=== PATIENT | female | born 1930 | race Caucasian/White ===

== ENCOUNTER 2016-05-30 13:58 | Emergency (ER) | payer MEDICARE, OTHER ==
[~2016-05-30] VITALS: Ht 149.9 cm; Wt 68.2 kg
[~2016-05-30 13:58] MED LIST: AMLO-39 PO; ASPI-628 PO; ATOR20TA65 PO; CARV25TA2 PO; DILT180C83 PO; LISI-567 PO; MAGN400T39 PO; RANI150T11 PO; VIT1CAPS46 PO
[2016-05-30 14:01] VITALS: BP 200/90; PULSE 98; RESP 14; O2SAT 98
--- NOTE | 2016-05-30 14:31 | ED.REPORT ---
HPI-Chest Pain 40 and Over Date of Service May 30, 2016 ED Provider: Isaías Dove MD Patient is an 86 year old female who presents to the ED complaining of dizziness on and off for the last few days. Associated symptoms include lightheadedness, altered memory, and SOB. She denies headache, blurred vision, chest pain, vomiting, or any other symptoms. She reports severe dyspnea upon arrival today. She took her regular morning BP medication today. Nursing Notes Stated Complaint: CHEST PAIN Chief Complaint: Chest Pain Nursing Notes Reviewed: Yes Allergies: Coded Allergies: Penicillins (Verified Allergy, Severe, 11/27/15) Sulfa (Sulfonamide Antibiotics) (Verified Allergy, Unknown, 03/07/14) verapamil (Verified Allergy, Unknown, 03/07/14) Scheduled Amlodipine (Norvasc) 5 Mg Tablet 5 MG PO AM Aspirin (Aspir 81) 81 Mg Tablet.dr 81 MG PO DAILY Atorvastatin Calcium (Atorvastatin Calcium) 20 Mg Tablet 20 MG PO HS Carvedilol (Carvedilol) 25 Mg Tablet 25 MG PO BID Diltiazem ER (Diltiazem ER) 180 Mg Cap.er.24h 180 MG PO DAILY Lisinopril (Lisinopril) 20 Mg Tablet 20 MG PO BID Vit C/E/Zn/Coppr/Lutein/Zeaxan (Preservision Areds 2 Softgel) 1 Each Capsule 1 EACH PO DAILY Scheduled PRN Ranitidine HCl (Ranitidine) 150 Mg Tablet 150 MG PO DAILY PRN PRN Acid Reflux Miscellaneous Medications Magnesium Oxide (Magnesium) 400 Mg Tablet 400 MG PO General Time Seen by MD: 14:29 Chief Complaint Other (Dizziness ) Hx Obtained From: Patient, Other family... Arrived By: Walk-in Sudden in Onset?: Yes Onset Occurred: 3 days ago Symptom Duration: Since onset Risk Factors )( CAD Risk Stratification Hyperlipidemia Hypertension Known CADNo Diabetes mellitus Risk factors N/A )( TAD Risk Stratification HypertensionNo High intensity wt lifting, No Pre-exist aortic aneurysm, No Risk factors reviewed )( PE Risk Stratification No , No Previous DVT, No Surgery Last 60 Days Risk factors reviewed Well's Criteria for PE Well's PE Score: 0-2 pts (low risk 3.6%) Past Medical History Past Medical History Notes: Cardio Dr. Smyth Past Medical History CAD - hx of [place] X 2 - hx of PCI with stent HTN HL Asthma GERD Reports: Asthma, Coronary artery disease, GERD, Hyperlipidemia, Hypertension, Denies: Cancer, Congestive heart failure, Diabetes mellitus Past Surgical History MAGGY-BSO Appendectomy Tonsillectomy Parathyroidectomy Reports: Angioplasty, Appendectomy, Hysterectomy, Tonsillectomy Smoking History Former Smoker Social History Other Social History: Review of Systems +foggy memory Respiratory: Reports: Shortness of breath Cardiovascular: Denies: Chest pain GI: Denies: Vomiting Neurologic: Reports: Dizziness, Lightheaded, Denies: Headache Complete sys rev & neg: except as marked. Eyes: Denies: Blurred bilateral Physical Exam Initial Vital Signs Vital Signs (First) Date Time Temp Pulse Resp B/P Pulse Ox O2 Delivery O2 Flow Rate FiO2 05/30/16 14:01 36.2 98 14 200/90 98 Room Air Initial VS: Reviewed Head / Eyes: Atraumatic, Normocephalic Neck: Full range of motion Skin: Warm, Dry Neurologic: Alert Psychiatric: Mood/affect normal, Behavior normal, Normal thought content General/Constitutional: Awake, Alert, Well appearing, Well developed Respiratory / Chest: Breath sounds NL, Breath sounds = bilat, No respiratory distress Cardiovascular: Heart rate NL, Regular rhythm, Heart sounds NL, Peripheral circulation NL Abdomen: Atraumatic, Soft, Non-tender Interpretation & Diagnostics Lab Results Interpretation Result Diagram: 05/30/16 1415 05/30/16 1415 Test 05/30/16 14:15 White Blood Count 7.6th/mm3 (3.8-10.1) Red Blood Count 4.75mil/mm3 (3.90-5.20) Hemoglobin 14.4g/dL (12.0-15.6) Hematocrit 43.4% (35.0-46.0) Mean Corpuscular Volume 91.4fL (81-100) Mean Corpuscular Hemoglobin 30.3pg (27.0-35.0) Mean Corpuscular Hemoglobin Concent 33.2% (32.0-37.0) Red Cell Distribution Width 14.4% (12.3-15.4) Platelet Count 201bil/L (150-400) Neutrophils (%) (Auto) 68.6% (40-74) Lymphocytes (%) (Auto) 21.6% (14-46) Monocytes (%) (Auto) 8.3% (4-12) Eosinophils (%) (Auto) 1.1% (0-5) Basophils (%) (Auto) 0.1% (0-3) D-Dimer < 0.5mg/L (<0.50) Hold Urine Received (Received) Sodium Level 136mEq/L (134-144) Potassium Level 3.8mEq/L (3.5-5.2) Chloride Level 98mEq/L (97-108) Carbon Dioxide Level 24mmol/L (18-29) Blood Urea Nitrogen 20mg/dL (8-27) Creatinine 1.07mg/dL (0.57-1.00) Estimat Glomerular Filtration Rate 69mL/min (>59) Glucose Level 104mg/dL (60-99) Calcium Level 9.7mg/dL (8.5-10.1) Total Bilirubin 0.6mg/dL (0.0-1.2) Aspartate Amino Transf (AST/SGOT) 16U/L (0-50) Alanine Aminotransferase (ALT/SGPT) 12U/L (0-32) Alkaline Phosphatase 99U/L (25-165) Troponin T < 0.010ug/L (0.0-0.011) Total Protein 7.7g/dL (6.4-8.4) Albumin 4.5g/dL (3.4-5.0) ECG Interpretation ECG Interpretation: sinus rate 66 Time: 14:14 Interpreted by: ED physician X-Ray Chest Interpretation Chest Xray Interpretation: IMPRESSION: No acute pulmonary process. Dictated by: Radha Minor M.D. on 05/30/2016 at 15:29 Approved by: Radha Minor M.D. on 05/30/2016 at 15:29 View: Portable, 1 view Interpretation / Wet Read by: Interpret - Radiologist Re-Eval/Medical Decision Time of Eval: 16:30 Re-Evaluation/Progress Note: rechecked patient. She reports it's still heavy to breathe but not ligthheaded. Discussed plan for raod test. Patient understands and agrees with plan. All questions addressed at this time. Time of Eval: 17:03 Re-Evaluation/Progress Note: Rechecked patient. Discussed need for furthing teting to exclude PE. Patient understands and agrees with plan. All questions addressed at this time. Time of Eval: 17:51 Re-Evaluation/Progress Note: Discussed plan for discharge. Patient understands and agrees with plan. All questions addressed at this time. Counseled Regarding: Diagnosis, Lab results, Need for follow-up, When/why to return to ED Discharge & Departure Primary Impression: Malignant hypertension Additional Impression: Dyspnea Dyspnea type: unspecified Qualified Code: R06.00 - Dyspnea, unspecified Disposition: Home Discharge Condition All VS Reviewed: Yes Condition: Improved Patient Instructions: Chronic Hypertension (ED) Additional Instructions: I believe that your breathlessness was directly related to your severe hypertension which has now been controlled. It is not clear why your blood pressure was so high but among the possibilities is that you forgot to take your medication. If you develop breathlessness again and your blood pressure is greater than 190 systolic, I recommend 1 additional carvedilol tablet. If your breathlessness and severe hypertension do not resolve within 30 minutes, I recommend that you return to the emergency department for further evaluation. Follow-up with your doctor in a few days to discuss the need for potential further evaluation and treatment. Referrals: Rima Hagan (PCP) Crit Care Except Billable Proc Time Spent: 30-74 minutes Scribe Attestation Portions of this note were transcribed by Baron Hanson. I, Dr. Dove personally performed the history, physical exam and medical decision-making; I reviewed and confirmed the accuracy of the information in the transcribed note. Signed by: Baron Hanson 05/30/16, 1801 copies to: Rima Hagan Kirk H MD May 30, 2016 14:30 BARON HANSON May 30, 2016 14:40
[2016-05-30 14:41] VITALS: BP 166/76; PULSE 63; RESP 16; O2SAT 98
[2016-05-30 14:46] LABS: BASOPHILS % (AUTO) 0.1 % (0-3); EOSINOPHILS % (AUTO) 1.1 % (0-5); MONOCYTES % (AUTO) 8.3 % (4-12); Mean Corpuscular Hemoglobin 30.3 pg (27.0-35.0); Mean Corpuscular Volume 91.4 fL (81-100); NEUTROPHILS % (AUTO) 68.6 % (40-74); Platelet Count 201 bil/L (150-400)
[2016-05-30 15:25] LABS: TROPONIN T < 0.010 ug/L (0.0-0.011)
--- NOTE | 2016-05-30 15:35 | DRSVH ---
PROCEDURE: X-RAY CHEST ONE VIEW, PORTABLE ([id number]) INDICATIONS: Shortness of breath TECHNIQUE: One view of the chest was acquired. COMPARISON: [facility], CR, XR CHEST 1VW (PORTABLE), 11/27/2015, 13:23. FINDINGS: Surgical changes and devices: None. Lungs and pleura: No pleural effusions or pneumothorax. Lungs are clear. Mediastinum: Mediastinal contours appear normal. Heart size is normal. Bones and chest wall: No suspicious bony lesions. Overlying soft tissues appear unremarkable. IMPRESSION: No acute pulmonary process. Dictated by: Radha Minor M.D. on 05/30/2016 at 15:29 Approved by: Radha Minor M.D. on 05/30/2016 at 15:29
[2016-05-30 16:47] VITALS: BP 166/73; PULSE 64; RESP 21; O2SAT 99
[2016-05-30 18:19] VITALS: BP 171/61; PULSE 59; RESP 20; O2SAT 98
== END 2016-05-30 18:20 | disposition home or self-care (01) ==
LOC: SED 13:58
DX: I10 Essential (primary) hypertension (principal); R06.00 Dyspnea, unspecified; R42 Dizziness and giddiness; I25.10 Atherosclerotic heart disease of native coronary artery without angina pectoris; E78.5 Hyperlipidemia, unspecified; J45.909 Unspecified asthma, uncomplicated; K21.9 Gastro-esophageal reflux disease without esophagitis; I25.2 Old myocardial infarction; Z95.818 Presence of other cardiac implants and grafts; Z87.891 Personal history of nicotine dependence; Z79.82 Long term (current) use of aspirin; Z88.0 Allergy status to penicillin; Z88.8 Allergy status to other drugs, medicaments and biological substances

== ENCOUNTER 2016-08-30 16:33 | Emergency (ER) | payer MEDICARE, OTHER ==
--- NOTE | 2016-08-30 16:33 | ED.REPORT ---
HPI-Stroke / CVA Aug 30, 2016 ED Provider: Blake Edwards MD Patient is an 86 year old female with a hx of afib, CAD, and HTN who presents to the ED via EMS for stroke-like symptoms with a last known well of 1600. Associated symptoms include L sided weakness, L sided facial asymmetry, and slurred speech. Per , she is only on aspirin. He was in the other room when he heard her fall to the ground. He arrived to her side with her on the ground and presenting with her current symptoms. Nursing Notes Stated Complaint: STROKE Nursing Notes Reviewed: Yes Allergies: Coded Allergies: Penicillins (Verified Allergy, Severe, 08/30/16) Sulfa (Sulfonamide Antibiotics) (Verified Allergy, Unknown, 08/30/16) verapamil (Verified Allergy, Unknown, 08/30/16) Scheduled Amlodipine (Norvasc) 5 Mg Tablet 5 MG PO AM (Reported) Aspirin (Aspir 81) 81 Mg Tablet.dr 81 MG PO DAILY (Reported) Atorvastatin Calcium (Atorvastatin Calcium) 20 Mg Tablet 20 MG PO HS (Reported) Carvedilol (Carvedilol) 25 Mg Tablet 25 MG PO BID (Reported) Diltiazem ER (Diltiazem ER) 180 Mg Cap.er.24h 180 MG PO DAILY Lisinopril (Lisinopril) 20 Mg Tablet 20 MG PO BID (Reported) Vit C/E/Zn/Coppr/Lutein/Zeaxan (Preservision Areds 2 Softgel) 1 Each Capsule 1 EACH PO DAILY (Reported) Scheduled PRN Ranitidine HCl (Ranitidine) 150 Mg Tablet 150 MG PO DAILY PRN PRN Acid Reflux ( Reported) Miscellaneous Medications Magnesium Oxide (Magnesium) 400 Mg Tablet 400 MG PO (Reported) General Time Seen by Provider: 16:28 Chief Complaint Slurred speech Left-sided Hx Obtained From: Patient, Spouse Arrived By: Ambulance Time last known well 1600 Sudden in Onset?: Yes Progression Since Onset: Unchanged Similar Sx Previous: No Risk Factors )( TPA Administration/Criteria Stroke Thrombolytic Therapy : TPA Considered: Yes Neurologist Contacted: Yes Disc Risk/Benefit/Alternatives: Yes Consent Obtained: Patient, Spouse Intensive Monitoring Performed: Yes TPA Administered Intravenously: Yes Complications Encountered: No Inclusion Criteria: Measurable neuro deficit, Onset < 3hr before Tx, 18 years or older NIH Stroke Scale Level of Consciousness: Alert and responsive (0) Ask Month & Age: Both questions right (0) Open/Close Eyes/Hand 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: Performs both tasks (0) Horizontal EO Movements: None (0) Visual Degroot: Partial hemianopsia (1) (Decreased visual field on L ) Facial Palsy: Partial paral, lower (2) (Left ) Right Arm Motor Drift (10s): No drift 10 sec (0) Left Arm Motor Drift (10s): Drift, hits bed (2) Right Leg Motor Drift (5s): No drift 5 sec (0) Left Leg Motor Drift (5s): Drift, hits bed (2) (After 3 seconds ) Limb Ataxia FNF/Heel-Lynch: Ataxia in 1 limb (1) (Neglect on L ) Sensation (Arms/Legs/Face): Complete sensory loss (2) Language Aphasia: No aphasia, normal (0) Dysarthria: Slurring intelligible (1) Extinction/Inattention: Inatt visual/tactile (1) NIHSS Score: 12 Time NIHSS Performed: 16:48 Date NIHSS Performed: Aug 30, 2016 )( CVA Risk Stratification Age >60 Atrial fibrillation Hyperlipidemia HypertensionNo Diabetes mellitus, No Smoking Risk factors reviewed Past Medical History Past Medical History Notes: Cardio Dr. Smyth Past Medical History CAD - hx of [place] X 2 - hx of PCI with stent HTN HL Asthma GERD Reports: Asthma, Coronary artery disease, GERD, Hyperlipidemia, Hypertension, Denies: Diabetes mellitus Reports: Atrial fibrillation Past Surgical History MAGGY-BSO Appendectomy Tonsillectomy Parathyroidectomy Reports: Angioplasty, Appendectomy, Hysterectomy, Tonsillectomy Smoking History Former Smoker Social History Other Social History: Review of Systems Unable to Obtain ROS Patient condition Physical Exam Initial Vital Signs Vital Signs (First) Date Time Temp Pulse Resp B/P Pulse Ox O2 Delivery O2 Flow Rate FiO2 08/30/16 16:40 36.7 111 18 186/106 95 Room Air Abdomen / GI: Soft, Non-tender Extremities: No swelling Skin: Warm, Dry General/Constitutional: Awake, Well developed Head / Eyes: Atraumatic, Normocephalic Neck: Full range of motion Respiratory / Chest: Breath sounds NL, Breath sounds = bilat, No respiratory distress Cardiovascular: Heart rate NL, Regular rhythm, Heart sounds NL, No murmurs Speech: Positive: Slurred Stroke scale 12 Interpretation & Diagnostics Lab Results Interpretation Result Diagram: 08/30/16 1630 08/30/16 1630 Test 08/30/16 16:30 White Blood Count 7.3th/mm3 (3.8-10.1) Red Blood Count 4.62mil/mm3 (3.90-5.20) Hemoglobin 13.6g/dL (12.0-15.6) Hematocrit 42.3% (35.0-46.0) Mean Corpuscular Volume 91.6fL (81-100) Mean Corpuscular Hemoglobin 29.4pg (27.0-35.0) Mean Corpuscular Hemoglobin Concent 32.2% (32.0-37.0) Red Cell Distribution Width 14.3% (12.3-15.4) Platelet Count 202bil/L (150-400) Neutrophils (%) (Auto) 68.7% (40-74) Lymphocytes (%) (Auto) 17.7% (14-46) Monocytes (%) (Auto) 10.8% (4-12) Eosinophils (%) (Auto) 2.2% (0-5) Basophils (%) (Auto) 0.3% (0-3) Prothrombin Time 11.2sec (8.1-12.5) Prothromb Time International Ratio 1.05ratio Activated Partial Thromboplast Time 27.3sec (22.8-33.0) Sodium Level 139mEq/L (134-144) Potassium Level 4.4mEq/L (3.5-5.2) Chloride Level 100mEq/L (97-108) Carbon Dioxide Level 22mmol/L (18-29) Blood Urea Nitrogen 24mg/dL (8-27) Creatinine 1.03mg/dL (0.57-1.00) Estimat Glomerular Filtration Rate 73mL/min (>59) Glucose Level 119mg/dL (60-99) Calcium Level 9.6mg/dL (8.5-10.1) Total Bilirubin 0.9mg/dL (0.0-1.2) Aspartate Amino Transf (AST/SGOT) 25U/L (0-50) Alanine Aminotransferase (ALT/SGPT) 14U/L (0-32) Alkaline Phosphatase 93U/L (25-165) Troponin T 0.026ug/L (0.0-0.011) Total Protein 7.3g/dL (6.4-8.4) Albumin 4.3g/dL (3.4-5.0) ECG Interpretation ECG Interpretation: afib rate [address], T changes Time: 16:52 Interpreted by: ED physician CT Head Interpretation CT BRAIN: IMPRESSION: 1. No acute intracranial disease process. 2. Findings telephoned to Dr. Edwards on 08/30/16 at 1643 hrs. This study fulfills neurological imaging criteria for inclusion or exclusion of acute stroke therapies based on available published neurological guidelines. Dictated by: Analia Marte MD, PhD on 08/30/2016 at 16:44 Approved by: Analia Marte MD, PhD on 08/30/2016 at 16:46 Study: Head CT no contrast Interpretation / Wet Read by: Interpret - Radiologist, Discussed w radiologist Procedures Intubation Procedure Performed by: ED physician Consent / Setup / Site Prep: Informed consent provided, No consent - emergent, Oxygen administered, Pulse oximeter applied, court monitor applied, Hand hygiene observed, Stand sterile technique Patient Position: Sniff position Blade / ET Tube / Route: [place] scope Procedural Sedation/Analgesia: Sedation: Etomidate Neuromuscular Agent: Succinylcholine ET Confirmation: Direct visualization, BS equal, End tidal CO2 device, Rising O2 sat Secured / Marked: ET tube device, Adhesive tape, Tube marked at ___ cm (22) Complications: None Post-Procedure: Condition improved, Tolerated procedure well, Patient stable Re-Eval/Medical Decision Med Decision/Clinical Course 86-year-old female history of atrial fibrillation on aspirin presenting with last known normal 4 PM. found her on the floor with left facial droop, left upper extremity and left lower extremity weakness, dysarthria. Stroke called immediately. I evaluated immediately on arrival. She went to CT emergently. There is no hemorrhage. The neurologist thought she had a right M1 clot. TPA was given after improvement of blood pressure with labetalol. Blood pressure was 150s over 80s at time of administration. TPA Given at request of neurologist, Dr Haas. The neurologist requested emergent transfer for clot evacuation. Requested no CTA. As we were preparing for transfer patient developed anaphylaxis and severe angioedema was not protecting airway. Intubated emergently. Rapid sequence intubation as above. Patient tolerated well. Her blood pressure did rise systolic 200 after intubation. Labetalol given. Nicardipine gtt started. Epi/benadryl/solumedrol given. Neurologist aware. Transferred emergently to [facility]. Re-Evaluation/Progress #1: Time of Eval: 16:55 Re-Evaluation/Progress Note: Discussed pt case and hx with . Reviewed exclusion criteria. Re-Evaluation/Progress #2: Time of Eval: 17:30 Re-Evaluation/Progress Note: Discussed plan for airlift. Patient understands and agrees with plan. All questions addressed at this time. Consultation #1: Call Returned at: 16:57 Mink Rancher: Agrees with eval, Agrees with plan Note: Discussed pt case with [facility]. Give TPA when BP lowered. Consultation #2: Call Returned at: 17:25 Note: Dr. Haas at [facility] discussed distal right M1 clot. Suggests airlift to [facility]. Counseled Regarding: Diagnosis, Lab results, Need for transfer Patient Discharge & Departure Impression: Primary Impression: Stroke CVA mechanism: unspecified Qualified Code: I63.9 - Cerebral infarction, unspecified Additional Impressions: Angioedema Anaphylactic reaction Disposition: Transfer, Acute Care Facility Transfer Requested at: 17:25 Receiving Hospital: [facility] Transfer Accepted: Yes Transfer Reason: Higher level of care Spoke with: Attending physician Patient Status: Stable Patient Informed: Yes Referrals: Rima Hagan (PCP) Crit Care Except Billable Proc Time Spent: 165-194 minutes Services Performed: Patient management by me, Time spent at bedside, Reviewing test results, Reviewing imaging, Discussing patient care, Documentation in record, Time with fam/surrogate Critical Care Notes: 168 minutes critical care time Scribe Attestation Portions of this note were transcribed by Baron Bowen. I, Dr. Edwards personally performed the history, physical exam and medical decision-making; I reviewed and confirmed the accuracy of the information in the transcribed note. Signed by: Baron Bowen 08/30/16, 3404 copies to: Rima Hagan Ben M MD Aug 30, 2016 16:33 BARON BOWEN Aug 30, 2016 16:48
[2016-08-30] MEDS ORDERED: Succinylcholine Chloride 20 mg/mL 5 mL Inj ONE (16:34)
[2016-08-30 16:40] VITALS: BP 186/106; PULSE 111; RESP 18; O2SAT 95
--- NOTE | 2016-08-30 16:47 | DRSVH ---
PROCEDURE: CT BRAIN (TPA) ([id number]) INDICATIONS: Stroke TECHNIQUE: Noncontrast 4.5 mm thick angled axial sections acquired from the foramen magnum to the vertex, with c oronal reformats. COMPARISON: None. FINDINGS: Image quality: Excellent. CSF spaces: Basal cisterns are patent. No extra-axial fluid collections. The ventricles are symmet jesika in size and shape. Brain: No intracranial bleeds or masses. There is cerebral volume loss for age, with resultant vent ricular and sulcal prominence. There are periventricular and deep white matter chronic small vessel ischemic changes. There is intracranial internal carotid artery atherosclerosis. Skull and face: Calvarium and visualized facial bones appear intact, without suspicious lesions. Sinuses: Visualized sinuses and mastoids are clear. IMPRESSION: 1. No acute intracranial disease process. 2. Findings telephoned to Dr. Edwards on 08/30/16 at 1643 hrs. This study fulfills neurological imaging criteria for inclusion or exclusion of acute stroke therapie s based on available published neurological guidelines. Dictated by: Analia Marte MD, PhD on 08/30/2016 at 16:44 Approved by: Analia Marte MD, PhD on 08/30/2016 at 16:46
[2016-08-30 16:48] LABS: BASOPHILS % (AUTO) 0.3 % (0-3); EOSINOPHILS % (AUTO) 2.2 % (0-5); MONOCYTES % (AUTO) 10.8 % (4-12); Mean Corpuscular Hemoglobin 29.4 pg (27.0-35.0); Mean Corpuscular Volume 91.6 fL (81-100); NEUTROPHILS % (AUTO) 68.7 % (40-74); Platelet Count 202 bil/L (150-400)
[2016-08-30] MEDS: Labetalol 5 mg/mL 4 mL Inj IV PRN ×2 (17:04→18:50)
[2016-08-30 17:07] LABS: INR 1.05 ratio
[2016-08-30 17:12] LABS: TROPONIN T 0.026 ug/L (0.0-0.011)
[2016-08-30] MEDS ORDERED: Alteplase Dose Per Pharmacist XX ONE (17:15)
[2016-08-30] MEDS ORDERED: ALTEPLASE IV ONE (17:35)
[2016-08-30] MEDS ORDERED: Alteplase (No Charge) 1 mg/mL Syringe IV ONE (17:35)
--- NOTE | 2016-08-30 19:26 | DRSVH ---
PROCEDURE: X-RAY CHEST ONE VIEW, PORTABLE ([id number]) INDICATIONS: post intubation TECHNIQUE: One view of the chest was acquired. COMPARISON: [facility], CR, XR CHEST 1VW (PORTABLE), 05/30/2016, 14:50. FINDINGS: Surgical changes and devices: ET tube projects approximately 3.1 cm superior to the paddy. NG tube crosses GE junction. Lungs and pleura: Focal opacity noted in the left lung base. Trace left-sided pleural effusion note d. Mediastinum: Mediastinal contours appear normal. Heart size is normal. Bones and chest wall: No suspicious bony lesions. Overlying soft tissues appear unremarkable. IMPRESSION: 1. ET tube approximately 3.1 cm superior to the paddy. 2. Left basilar opacity and trace left-sided pleural effusion suspicious for pneumonia versus aspira tion. Dictated by: Analia Marte MD, PhD on 08/30/2016 at 19:23 Approved by: Analia Marte MD, PhD on 08/30/2016 at 19:24
[2016-08-30 19:50] VITALS: BP 219/138; PULSE 117; RESP 16; O2SAT 99
[2016-08-30 20:59] LABS: APPEARANCE,URINE CLEAR (CLEAR,HAZY); COLOR,URINE YELLOW (YELLOW); OCCULT BLOOD,URINE SMALL (NEGATIVE); PH,URINE 6.5 (5.0-8.0); UROBILINOGEN,URINE NORMAL (NORMAL)
== END 2016-08-30 19:09 | disposition short-term general hospital (02) ==
LOC: SED 16:33
DX: I63.9 Cerebral infarction, unspecified (principal); T78.3XXA Angioneurotic edema, initial encounter; T78.2XXA Anaphylactic shock, unspecified, initial encounter; X58.XXXA Exposure to other specified factors, initial encounter; Y93.89 Activity, other specified; Y92.009 Unspecified place in unspecified non-institutional (private) residence as the place of occurrence of the external cause; Y99.8 Other external cause status; I25.10 Atherosclerotic heart disease of native coronary artery without angina pectoris; I10 Essential (primary) hypertension; J45.909 Unspecified asthma, uncomplicated; K21.9 Gastro-esophageal reflux disease without esophagitis; E78.5 Hyperlipidemia, unspecified; Z87.891 Personal history of nicotine dependence; Z79.82 Long term (current) use of aspirin; Z88.0 Allergy status to penicillin; Z88.2 Allergy status to sulfonamides; Z88.8 Allergy status to other drugs, medicaments and biological substances
CPT/HCPCS: 31500; 36415; 37195; 70450; 71010; 80053; 81000; 84484; 85025; 85610; 85730; 93005; 94799; 96374; 99291; 99292; J2997

== ENCOUNTER 2016-09-20 01:36 | Emergency (ER) | payer MEDICARE, OTHER ==
[~2016-09-20] VITALS: Ht 154.9 cm; Wt 65.0 kg
--- NOTE | 2016-09-20 01:39 | ED.REPORT ---
HPI-Altered Mental Status Date of Service September 20, 2016 ED Provider: Shant Beaulieu Patient is an 86 year old female with chronic atrial fibrillation on Coumadin, admitted to [facility] after recent severe right middle cerebral artery stroke, who presents to the ED via EMS from [facility] s/p falling out of bed. Per medics, her L leg was still on the bed when they arrived and she did not want to be moved. Per family, she was very agitated before going to bed, throwing things around her room, and striking out at staff.. She denies neck pain, headache, or any other symptoms. Reliability of her review of systems is questionable. She has baseline L sided deficits from a previous CVA. Her dose of Coumadin was recently changed, due to being underanticoagulated.. Nursing Notes Stated Complaint: GLF Nursing Notes Reviewed: Yes Allergies: Coded Allergies: Penicillins (Verified Allergy, Severe, 08/30/16) Sulfa (Sulfonamide Antibiotics) (Verified Allergy, Unknown, 08/30/16) verapamil (Verified Allergy, Unknown, 08/30/16) Scheduled Amlodipine (Norvasc) 5 Mg Tablet 5 MG PO AM Aspirin (Aspir 81) 81 Mg Tablet.dr 81 MG PO DAILY Atorvastatin Calcium (Atorvastatin Calcium) 20 Mg Tablet 20 MG PO HS Carvedilol (Carvedilol) 25 Mg Tablet 25 MG PO BID Diltiazem ER (Diltiazem ER) 180 Mg Cap.er.24h 180 MG PO DAILY Lisinopril (Lisinopril) 20 Mg Tablet 20 MG PO BID Vit C/E/Zn/Coppr/Lutein/Zeaxan (Preservision Areds 2 Softgel) 1 Each Capsule 1 EACH PO DAILY Scheduled PRN Ranitidine HCl (Ranitidine) 150 Mg Tablet 150 MG PO DAILY PRN PRN Acid Reflux Miscellaneous Medications Magnesium Oxide (Magnesium) 400 Mg Tablet 400 MG PO General Time Seen by MD: 01:39 Chief Complaint Agitated, Other (GLF) Hx Obtained From: Patient, Other family..., EMS Arrived By: Ambulance Sudden in Onset?: Yes Onset Occurred: Just prior to arrival Risk Factors )( IC Bleed Risk Strat Blood thinners RF Statements: Risk factors reviewed )( SAH Risk Stratification Anticoagulation therapy HypertensionNo Coagulopathy RF Statements: Risk factors reviewed Past Medical History Past Medical History Notes: Cardio Dr. Smyth Past Medical History CAD - hx of MD X 2 - hx of PCI with stent HTN HL Asthma GERD Reports: Asthma, Coronary artery disease, GERD, Hyperlipidemia, Hypertension, Stroke Reports: Atrial fibrillation Past Surgical History MAGGY-BSO Appendectomy Tonsillectomy Parathyroidectomy Reports: Angioplasty, Appendectomy, Hysterectomy, Tonsillectomy Smoking History Former Smoker Social History Other Social History: Review of Systems Review of Systems Note: +GLF Neurologic: Denies: Headache Psychiatric: Reports: Agitation Complete sys rev & neg: except as marked. Musculoskeletal: Denies: Neck pain Physical Exam Initial Vital Signs Vital Signs (First) Date Time Temp Pulse Resp B/P Pulse Ox O2 Delivery O2 Flow Rate FiO2 09/20/16 01:40 36.8 100 16 134/71 96 Room Air Initial VS: Reviewed Abdomen / GI: Soft, Non-tender Skin: Warm, Dry General/Constitutional: Awake, Alert, Well developed Behavior: Positive: Agitated Head / Eyes: Normocephalic, PERRL Bruise on L forehead Neck: Atraumatic, Supple, Full range of motion Respiratory / Chest: Breath sounds NL, Breath sounds = bilat, No respiratory distress Cardiovascular: Heart rate NL Heart Rate / Rhythm: Positive: Irregular rhythm Neurologic: Oriented X3 L sided arm and facial deficits- chronic Upper Extremity / MS: Inspection NL L arm ecchymosis Lower Extremity / Pelvis / MS: Inspection NL, Full range of motion, Non-tender Interpretation & Diagnostics Lab Results Interpretation Result Diagram: 09/20/16 0155 09/20/16 0155 Test 09/20/16 01:55 09/20/16 02:00 09/20/16 03:30 White Blood Count 6.3th/mm3 (3.8-10.1) Red Blood Count 3.71mil/mm3 (3.90-5.20) Hemoglobin 11.0g/dL (12.0-15.6) Hematocrit 35.1% (35.0-46.0) Mean Corpuscular Volume 94.6fL (81-100) Mean Corpuscular Hemoglobin 29.6pg (27.0-35.0) Mean Corpuscular Hemoglobin Concent 31.3% (32.0-37.0) Red Cell Distribution Width 16.4% (12.3-15.4) Platelet Count 231bil/L (150-400) Neutrophils (%) (Auto) 67.4% (40-74) Lymphocytes (%) (Auto) 20.1% (14-46) Monocytes (%) (Auto) 10.7% (4-12) Eosinophils (%) (Auto) 1.3% (0-5) Basophils (%) (Auto) 0.3% (0-3) Sodium Level 140mEq/L (134-144) Potassium Level 4.1mEq/L (3.5-5.2) Chloride Level 103mEq/L (97-108) Carbon Dioxide Level 25mmol/L (18-29) Blood Urea Nitrogen 40mg/dL (8-27) Creatinine 0.99mg/dL (0.57-1.00) Estimat Glomerular Filtration Rate 76mL/min (>59) Glucose Level 108mg/dL (60-99) Calcium Level 9.4mg/dL (8.5-10.1) Magnesium Level 1.8mg/dL (1.6-2.6) Total Bilirubin 0.9mg/dL (0.0-1.2) Aspartate Amino Transf (AST/SGOT) 18U/L (0-50) Alanine Aminotransferase (ALT/SGPT) 20U/L (0-32) Alkaline Phosphatase 77U/L (25-165) Total Protein 6.2g/dL (6.4-8.4) Albumin 3.6g/dL (3.4-5.0) Hold [place]y Top Tube Received (Received) Prothrombin Time 30.5sec (8.1-12.5) Prothromb Time International Ratio 2.79ratio Urine Color Yellow (YELLOW) Urine Appearance Clear (CLEAR,HAZY) Urine pH 5.5 (5.0-8.0) Urine Specific [place] 1.020 (1.003-1.035) Urine Protein Negativemg/dL (NEG,TRACE) Urine Glucose (UA) Negativemg/dL (NEGATIVE) Urine Ketones Negativemg/dL (NEGATIVE) Urine Occult Blood Negative (NEGATIVE) Urine Nitrite Negative (NEGATIVE) Urine Bilirubin Negative (NEGATIVE) Urine Urobilinogen Normalmg/dL (NORMAL) Urine Leukocyte Esterase Negative (NEGATIVE) Urine RBC 3-10/hpf (0-2) Urine WBC 0-5/hpf (0-5) Urine Epithelial Cells Few/hpf (NONE-MOD) Urine Crystals None seen (NONE SEEN) Urine Bacteria Few/hpf (NONE-FEW) Urine Hyaline Casts >20/lpf (NONE) Urine Granular Casts Occasional (NONE SEEN) Urine Waxy Casts None seen (NONE SEEN) Urine Red Blood Cell Casts None seen (NONE SEEN) Urine White Blood Cell Casts None seen (NONE SEEN) Urine Mucus None seen (None Seen) Urine Trichomonas None seen (NONE SEEN) Urine Yeast None (NONE SEEN) Urinalysis Comment None Urine Culture Reflexed Not indicated Lab Results Interpretation: CT Cspine W/o Contrast: CONCLUSION: Bilateral pleural effusions, left greater than right side. Osteoporosis with moderate to severe degenerative change in the cervical spine. No fracture or listhesis. Bria Wallace M.D. CT L HIP W/O CONTRAST: CONCLUSION: Osteoporosis and degenerative change. No fracture or acute abnormality. Bria Wallace M.D. ECG Interpretation ECG Interpretation: afib rate 95 low voltage, extremity leads Time: 01:51 Interpreted by: ED physician X-Ray Chest Interpretation Chest Xray Interpretation: cardiomegaly View: Portable, 1 view Interpretation / Wet Read by: Interpret - ED physician X-Ray Interpretation Xray Interpretation: Possible L hip fracture X-Ray Ordered: Pelvis, Hip right, Hip left Interpretation / Wet Read by: Interpret - ED physician Xray Interpretation: Negative X-Ray Ordered: Knee left Interpretation / Wet Read by: Interpret - ED physician CT Head Interpretation CT brain: Right MCA infarct is evolving, probably subacute. No hemorrhage or acute abnormalities. Bria Wallace M.D. Study: Head CT no contrast Interpretation / Wet Read by: Interpret - Radiologist Re-Eval/Medical Decision Med Decision/Clinical Course 86-year-old female adequately anticoagulated had a low level fall out of bed. Mental status has been change since the stroke but not different specifically now. She has become more agitated over the last several days. CT of head and neck are negative tonight. Anticoagulation is adequate with an INR of 2.7. Discussed the risks benefits alternatives with son, indicating the possibility of slow bleed and are usual approach of repeating a CT in 8-12 hours. However, she is in the full long term level at [facility], and they can observe for vomiting or other symptoms and signs concerning for developing intracranial pressure. She is discharged back to her [place] for ongoing observation. She was given some Haldol here, as she was verbally fairly aggressive and not terribly cooperative. Measures directed at the behavioral issues at the long term will have to await the determination of her physician. Re-Evaluation/Progress #1: Time of Eval: 03:39 )( Re-Eval Neurologic Exam: Alert Re-Evaluation/Progress Note: Rechecked pt. She is agitated. Re-Evaluation/Progress #2: Time of Eval: 04:26 )( Re-Eval Neurologic Exam: Alert Re-Evaluation/Progress Note: Discussed plan for discharge. Patient understands and agrees with plan. All questions addressed at this time. Counseled Regarding: Diagnosis, Lab results, Need for follow-up, When/why to return to ED Patient Discharge & Departure Shift Change Sign-Out Response to Therapy: Unchanged Impression: Primary Impression: Fall from bed Encounter type: initial encounter Qualified Code: W06.XXXA - Fall from bed, initial encounter Disposition: Transfer, [employer] Acute Care Discharge Condition All VS Reviewed: Yes Condition: Improved Additional Instructions: Resume former orders. Consider dementia appropriate sedatives for regulation of her sleep and behavior. No evidence of intracranial injury, neck injury, or hip or knee injury on films. Return her here promptly if she develops repetitive vomiting or other new symptoms of concern. Referrals: Rima Hagan (PCP) Scribe Attestation Portions of this note were transcribed by Baron Hanson. I, Dr. Beaulieu personally performed the history, physical exam and medical decision-making; I reviewed and confirmed the accuracy of the information in the transcribed note. Signed by: Baron Hanson 09/20/16, 3433 copies to: Rima Hagan Christopher W MD September 20, 2016 01:39 BARON HANSON September 20, 2016 01:44
[2016-09-20 01:40] VITALS: BP 134/71; PULSE 100; RESP 16; O2SAT 96
[2016-09-20 02:02] LABS: BASOPHILS % (AUTO) 0.3 % (0-3); EOSINOPHILS % (AUTO) 1.3 % (0-5); MONOCYTES % (AUTO) 10.7 % (4-12); Mean Corpuscular Hemoglobin 29.6 pg (27.0-35.0); Mean Corpuscular Volume 94.6 fL (81-100); NEUTROPHILS % (AUTO) 67.4 % (40-74); Platelet Count 231 bil/L (150-400)
[2016-09-20 02:28] LABS: Magnesium 1.8 mg/dL (1.6-2.6)
[2016-09-20 02:29] VITALS: BP 117/97; PULSE 104; RESP 14; O2SAT 95
[2016-09-20 02:38] LABS: INR 2.79 ratio
[2016-09-20] MEDS ORDERED: Haloperidol 5 mg/mL Inj IM PRN (03:45)
[2016-09-20 04:14] LABS: APPEARANCE,URINE CLEAR (CLEAR,HAZY); COLOR,URINE YELLOW (YELLOW); PH,URINE 5.5 (5.0-8.0)
[2016-09-20 04:15] LABS: OCCULT BLOOD,URINE NEGATIVE (NEGATIVE); UROBILINOGEN,URINE NORMAL (NORMAL)
[2016-09-20 04:34] VITALS: BP 120/90; PULSE 109; RESP 22; O2SAT 98
--- NOTE | 2016-09-20 08:40 | DRSVH ---
PROCEDURE: CT BRAIN WITHOUT CONTRAST ([id number]) INDICATIONS: fall out of bed TECHNIQUE: Noncontrast 4.5 mm thick angled axial sections acquired from the foramen magnum to the vertex, with c oronal reformats. COMPARISON: , CT, BRAIN ([facility]), 08/30/2016, 16:40. FINDINGS: Image quality: Excellent. CSF spaces: Basal cisterns are patent. No extra-axial fluid collections. There is mild cerebral vo lume loss, with resultant ventricular and sulcal prominence. Brain: No intracranial hemorrhage or mass. There is a large region of cortical and subcortical hypo attenuation involving the right frontal, parietal, and temporal lobes within the middle cerebral argelia ry territory which are new compared to the prior study and consistent with an evolving subacute to ch ronic infarct. There are subcortical, periventricular and deep white matter hypodensities consistent with mild chronic small vessel ischemic changes. There is intracranial internal carotid artery athe rosclerosis. Skull and face: Calvarium and visualized facial bones appear intact, without suspicious lesions. Sinuses: Visualized sinuses and mastoids are clear. IMPRESSION: 1. No acute intracranial hemorrhage. 2. Large evolving subacute to chronic infarct demonstrated in the right middle cerebral artery alyson tory. Dictated by: Migue Ramos M.D. on 09/20/2016 at 8:28 Approved by: Migue Ramos M.D. on 09/20/2016 at 8:33
--- NOTE | 2016-09-20 09:12 | DRSVH ---
PROCEDURE: CT CERVICAL SPINE WITHOUT CONTRAST ([id number]) INDICATIONS: fall out of bed TECHNIQUE: Noncontrast 3 mm thick sections acquired from the skull base to the T4 level. Sagittal and coronal r eformats were then constructed. For radiation dose reduction, the following was used: automated exp osure control, adjustment of mA and/or kV according to patient size. COMPARISON: None. FINDINGS: Image quality: Excellent. Bones: No fractures or dislocations. There is osteopenia. Straightening of the cervical lordosis i s noted. There is minimal anterolisthesis at C2-C3. Multilevel disc space narrowing is present thro ughout the cervical spine including moderate to severe narrowing at C6-C7 with endplate sclerosis and irregularity as well as osteophytosis. Mild to moderate changes are demonstrated at C3-C4, C4-C5, a nd C5-C6. There is [id number] multilevel facet arthropathy also noted throughout the cervical spine as well as mild uncovertebral joint arthropathy in the lower cervical spine. Visualized superi or ribs are intact. Soft tissues: Prevertebral soft tissues are normal in thickness. There is a small nodule within the right thyroid lobe measuring up to 8 mm. No paravertebral hematomas. No apical pneumothoraces. The re are bilateral pleural effusions within the visualized lungs, left greater than right. IMPRESSION: 1. No fracture or subluxation. 2. Multilevel degenerative changes throughout the cervical spine as described most prominent at C6-C 7. 3. Bilateral pleural effusions within the visualized lungs, left greater than right. 4. Small right thyroid nodule. Dictated by: Migue Ramos M.D. on 09/20/2016 at 8:56 Approved by: Migue Ramos M.D. on 09/20/2016 at 9:05
--- NOTE | 2016-09-20 09:16 | DRSVH ---
PROCEDURE: CT HIP LEFT W/O CONTRAST ([id number]) INDICATIONS: Status post fall with possible left hip fracture. TECHNIQUE: Noncontrast 3 mm axial sections acquired through the bony pelvis. Additional 3 mm axial sections acq uired through the symptomatic hip joint, with coronal and sagittal reformats. COMPARISON: [facility], CR, XR PELVIS W BILATERAL HIPS 5VW, 09/20/2016, 1:59. FINDINGS: Image quality: Excellent. Bones: There is diffuse osteopenia. No displaced fracture is identified. There is mild axial joint space narrowing in the hips. There is degenerative disc disease and facet arthropathy within the vis ualized lower lumbar spine. Soft tissues: No discrete soft tissue hematomas. No joint effusions. Visualized pelvic structures d emonstrate no intraperit or graves free fluid. There is colonic diverticulosis without acute divertic ulitis. Bladder wall thickness is normal. IMPRESSION: 1. Osteopenia without a displaced fracture identified. Dictated by: Migue Ramos M.D. on 09/20/2016 at 9:05 Approved by: Migue Ramos M.D. on 09/20/2016 at 9:08
--- NOTE | 2016-09-20 10:00 | DRSVH ---
PROCEDURE: X-RAY PELVIS WITH BILATERAL HIPS ([id number]) INDICATIONS: fall out of bed TECHNIQUE: AP pelvis with lateral views of the hips bilaterally. COMPARISON: [facility], CT, CT HIP LT WO CON, 09/20/2016, 2:37. FINDINGS: Bones: No definite displaced fractures or dislocations. Evaluation of the left is limited due to ro tation. Pelvic ring appears intact. No suspicious bony lesions. Soft tissues: The visualized bowel gas pattern is normal. No suspicious soft tissue calcifications. IMPRESSION: 1. No definite displaced fracture or dislocation with evaluation of the left hip limited due to rota tion. Dictated by: Migue Ramos M.D. on 09/20/2016 at 9:52 Approved by: Migue Ramos M.D. on 09/20/2016 at 9:53
--- NOTE | 2016-09-20 10:03 | DRSVH ---
PROCEDURE: X-RAY CHEST ONE VIEW, PORTABLE ([id number]) INDICATIONS: fall out of bed TECHNIQUE: One view of the chest was acquired. COMPARISON: [facility], CR, CHEST 1VW (PORTABLE), 03/07/2014, 14:06. [facility], CR, XR CHEST 1VW (PORTABLE), 11/27/2015, 13:23. [facility], CR, XR CHEST 1VW (MARITZA BLE), 05/30/2016, 14:50. [facility], CR, XR CHEST 1VW (PORTABLE), 08/30/2016, 18:45. FINDINGS: Surgical changes and devices: None. Lungs and pleura: No pleural effusions or pneumothorax. There is mild interstitial prominence which appears chronic. No focal consolidation. Mediastinum: Mediastinal contours appear unchanged. Heart size is borderline enlarged. Bones and chest wall: No suspicious bony lesions. Overlying soft tissues appear unremarkable. IMPRESSION: 1. No definite acute cardiopulmonary disease. 2. Mild interstitial prominence which is likely chronic. Dictated by: Migue Ramos M.D. on 09/20/2016 at 9:53 Approved by: Migue Ramos M.D. on 09/20/2016 at 9:56
--- NOTE | 2016-09-20 10:05 | DRSVH ---
PROCEDURE: X-RAY LEFT KNEE, THREE VIEWS ([id number]) INDICATIONS: fall from bed TECHNIQUE: 3 views of the knee were acquired. COMPARISON: None. FINDINGS: Bones: No fractures or dislocations. There is osteopenia. No suspicious bony lesions. Soft tissues: There is a small joint effusion. There is mild chondrocalcinosis. IMPRESSION: 1. No fracture or dislocation. 2. Small joint effusion. 3. 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 Dictated by: Migue Ramos M.D. on 09/20/2016 at 9:56 Approved by: Migue Ramos M.D. on 09/20/2016 at 9:58
== END 2016-09-20 04:51 ==
LOC: SED 01:36
DX: S00.83XA Contusion of other part of head, initial encounter (principal); S40.022A Contusion of left upper arm, initial encounter; W06.XXXA Fall from bed, initial encounter; Y93.89 Activity, other specified; Y92.122 Bedroom in nursing home as the place of occurrence of the external cause; Y99.8 Other external cause status; I11.9 Hypertensive heart disease without heart failure; I25.10 Atherosclerotic heart disease of native coronary artery without angina pectoris; I25.2 Old myocardial infarction; I48.91 Unspecified atrial fibrillation; J45.909 Unspecified asthma, uncomplicated; K21.9 Gastro-esophageal reflux disease without esophagitis; E78.5 Hyperlipidemia, unspecified; Z86.73 Personal history of transient ischemic attack (TIA), and cerebral infarction without residual deficits; Z95.5 Presence of coronary angioplasty implant and graft; Z79.82 Long term (current) use of aspirin; Z79.01 Long term (current) use of anticoagulants; Z87.891 Personal history of nicotine dependence; Z88.0 Allergy status to penicillin; Z88.2 Allergy status to sulfonamides; Z88.8 Allergy status to other drugs, medicaments and biological substances
CPT/HCPCS: 36415; 70450; 71010; 72125; 73523; 73562; 73700; 80053; 81000; 83735; 85025; 85610; 93005; 96372; 99285; J1630